=== PATIENT | male | born 1970 | race Caucasian/White ===

== ENCOUNTER 2018-01-11 00:30 | Emergency (ER) | payer OTHER ==
[~2018-01-11] VITALS: Ht 185.4 cm; Wt 140.6 kg
[2018-01-11 00:33] VITALS: Ht 185.4 cm; Wt 140.6 kg
[2018-01-11 01:18] LABS: BASOPHIL % 0.5 % (0-2); PLATELET COUNT 202 x10^3mcL (130-400); RED CELL DISTRIBUTION WIDTH 14.3 % (11.5-14.5)
[2018-01-11 01:29] LABS: CALCIUM 7.8 mg/dL (8.5-10.1); CHLORIDE SERUM 103 mmol/L (98-107); CREATININE SERUM 1.1 mg/dL (0.7-1.3); GFR1 > 60 mL/min; GLUCOSE SERUM 176 mg/dL (74-106); POTASSIUM SERUM 3.8 mmol/L (3.5-5.1); SODIUM SERUM 138 mmol/L (136-145)
[2018-01-11 01:34] LABS: ALBUMIN 3.4 g/dL (3.4-5.0); ALKALINE PHOSPHATASE 101 U/L (46-116); ALT/SGPT 32 U/L (16-63); AST/SGOT 21 U/L (15-37); BILIRUBIN TOTAL 0.4 mg/dL (0.20-1.00); TOTAL PROTEIN, SERUM 6.7 g/dL (6.4-8.2)
[2018-01-11 02:12] LABS: microscopic required? NO
[2018-01-11 02:24] LABS: urine erythrocyte NEGATIVE (NEGATIVE)
[2018-01-11 03:33] VITALS: BP 111/64
== END 2018-01-11 03:33 | disposition home or self-care (01) ==
LOC: ED 00:30
PROVIDERS: Emergency Medicine
DX: I10 Essential (primary) hypertension (principal); R73.9 Hyperglycemia, unspecified
CPT/HCPCS: 36415; 83880

== ENCOUNTER 2020-01-29 18:56 | Inpatient (IN) | payer OTHER, SELFPAY ==
[~2020-01-29] VITALS: Ht 185.4 cm; Wt 131.7 kg
[2020-01-29 18:59] VITALS: Ht 185.4 cm; Wt 131.7 kg
[2020-01-29 21:33] LABS: BASOPHIL % 0 % (0-2); PLATELET COUNT 268 x10^3mcL (130-400); RED CELL DISTRIBUTION WIDTH 14.1 % (11.5-14.5)
[2020-01-29 22:14] LABS: BILIRUBIN TOTAL 0.84 mg/dL (0.20-1.00); CALCIUM 8.8 mg/dL (8.5-10.1); CREATININE SERUM 1.4 mg/dL (0.7-1.3); POTASSIUM SERUM 3.8 mmol/L (3.5-5.1); TOTAL PROTEIN, SERUM 7.8 g/dL (6.4-8.2)
[2020-01-29 22:29] LABS: ALBUMIN 3.3 g/dL (3.4-5.0)
[2020-01-30] VITALS (7 sets, daily range): BP systolic 110–153; BP diastolic 57–95
[2020-01-30 02:46] LABS: UA SPECIFIC GRAVITY 1.025 (1.005-1.035); microscopic required? YES; urine erythrocyte 3+ (NEGATIVE)
[2020-01-30 02:55] LABS: MAGNESIUM 2.3 mg/dL (1.8-2.4); PHOSPHOROUS 2.1 mg/dL (2.5-4.9)
[2020-01-30 07:31] LABS: C REACTIVE PROTEIN 11.7 mg/dL (<=0.9); CALCIUM 8.5 mg/dL (8.5-10.1); CARBON DIOXIDE 26.2 mmol/L (21-32); CREATININE SERUM 1.4 mg/dL (0.7-1.3); MAGNESIUM 2.5 mg/dL (1.8-2.4); PHOSPHOROUS 4.5 mg/dL (2.5-4.9); POTASSIUM SERUM 3.7 mmol/L (3.5-5.1)
[2020-01-30 08:00] LABS: BASOPHIL % 0.1 % (0-2); PLATELET COUNT 227 x10^3mcL (130-400); RED CELL DISTRIBUTION WIDTH 13.7 % (11.5-14.5)
[2020-01-30 20:50] LABS: AMPHETAMINE QUAL UR NONE DETECTED (See below)
[2020-01-31 05:58] VITALS: BP 116/63
[2020-01-31 07:48] LABS: BASOPHIL % 0.2 % (0-2); PLATELET COUNT 248 x10^3mcL (130-400); RED CELL DISTRIBUTION WIDTH 13.9 % (11.5-14.5)
[2020-01-31 08:04] LABS: CALCIUM 9.1 mg/dL (8.5-10.1); CARBON DIOXIDE 28.8 mmol/L (21-32); CHLORIDE SERUM 100 mmol/L (98-107); CREATININE SERUM 1.1 mg/dL (0.7-1.3); GFR1 > 60 mL/min; GLUCOSE SERUM 128 mg/dL (74-106); MAGNESIUM 2.6 mg/dL (1.8-2.4); PHOSPHOROUS 4.1 mg/dL (2.5-4.9); POTASSIUM SERUM 3.9 mmol/L (3.5-5.1); SODIUM SERUM 139 mmol/L (136-145)
[2020-01-31 09:19] VITALS: BP 146/79
[2020-01-31 12:31] VITALS: BP 120/70
[2020-01-31 21:18] VITALS: BP 133/79
[2020-02-01 05:46] VITALS: BP 119/64
[2020-02-01 07:21] LABS: CALCIUM 8.5 mg/dL (8.5-10.1); CARBON DIOXIDE 29.4 mmol/L (21-32); CHLORIDE SERUM 104 mmol/L (98-107); CREATININE SERUM 1.1 mg/dL (0.7-1.3); GFR1 > 60 mL/min; GLUCOSE SERUM 118 mg/dL (74-106); MAGNESIUM 2.4 mg/dL (1.8-2.4); SODIUM SERUM 140 mmol/L (136-145)
[2020-02-01 08:03] LABS: BASOPHIL % 0.3 % (0-2); PLATELET COUNT 310 x10^3mcL (130-400); RED CELL DISTRIBUTION WIDTH 12.8 % (11.5-14.5)
[2020-02-01 09:04] VITALS: BP 134/78
[2020-02-01 12:26] VITALS: BP 149/90
[2020-02-01 17:02] VITALS: BP 156/92
[2020-02-01 21:15] VITALS: BP 97/48
[2020-02-02 05:40] VITALS: BP 149/86
[2020-02-02 09:09] VITALS: BP 161/102
[2020-02-02 12:45] VITALS: BP 146/89
[2020-02-02 12:51] LABS: BILIRUBIN DIRECT 0.2 mg/dL (0.0-0.2); BILIRUBIN TOTAL 0.51 mg/dL (0.20-1.00); TOTAL PROTEIN, SERUM 7.1 g/dL (6.4-8.2)
[2020-02-02 13:11] LABS: ALBUMIN 2.8 g/dL (3.4-5.0)
[2020-02-02 16:45] VITALS: BP 139/87
[2020-02-02 22:29] VITALS: BP 150/99
[2020-02-03 06:41] VITALS: BP 159/103
[2020-02-03 07:28] LABS: BASOPHIL % 0.1 % (0-2); PLATELET COUNT 307 x10^3mcL (130-400); RED CELL DISTRIBUTION WIDTH 12.6 % (11.5-14.5)
[2020-02-03 07:35] LABS: ALKALINE PHOSPHATASE 73 U/L (46-116); ALT/SGPT 81 U/L (16-63); AST/SGOT 44 U/L (15-37); BILIRUBIN DIRECT 0.23 mg/dL (0.0-0.2); BILIRUBIN TOTAL 0.7 mg/dL (0.20-1.00); CALCIUM 8.7 mg/dL (8.5-10.1); CARBON DIOXIDE 25.6 mmol/L (21-32); CHLORIDE SERUM 102 mmol/L (98-107); CREATININE SERUM 0.9 mg/dL (0.7-1.3); GFR1 > 60 mL/min; GLUCOSE SERUM 93 mg/dL (74-106); POTASSIUM SERUM 4.6 mmol/L (3.5-5.1); SODIUM SERUM 136 mmol/L (136-145)
[2020-02-03 07:36] LABS: ALBUMIN 2.7 g/dL (3.4-5.0)
[2020-02-03 08:28] VITALS: BP 164/101
[2020-02-03 12:02] VITALS: BP 147/85
[2020-02-03 16:58] VITALS: BP 170/106
[2020-02-03 20:45] VITALS: BP 145/86
[2020-02-04 05:40] VITALS: BP 135/98
[2020-02-04 08:03] LABS: BILIRUBIN DIRECT 0.27 mg/dL (0.0-0.2); BILIRUBIN TOTAL 0.7 mg/dL (0.20-1.00)
[2020-02-04 08:08] LABS: ALBUMIN 3.1 g/dL (3.4-5.0); TOTAL PROTEIN, SERUM 8.3 g/dL (6.4-8.2)
[2020-02-04 09:02] VITALS: BP 139/97
[2020-02-04 12:55] VITALS: BP 131/95
[2020-02-04 17:13] VITALS: BP 120/84
[2020-02-04 21:49] VITALS: BP 134/73
[2020-02-05 06:14] VITALS: BP 114/62
[2020-02-05 07:39] LABS: BASOPHIL % 0.3 % (0-2); PLATELET COUNT 338 x10^3mcL (130-400); RED CELL DISTRIBUTION WIDTH 14.1 % (11.5-14.5)
[2020-02-05 07:55] LABS: CALCIUM 9.3 mg/dL (8.5-10.1); CARBON DIOXIDE 23.8 mmol/L (21-32); CHLORIDE SERUM 105 mmol/L (98-107); CREATININE SERUM 1.1 mg/dL (0.7-1.3); GFR1 > 60 mL/min; GLUCOSE SERUM 124 mg/dL (74-106); POTASSIUM SERUM 4.5 mmol/L (3.5-5.1); SODIUM SERUM 138 mmol/L (136-145)
[2020-02-05 08:58] VITALS: BP 131/91
[2020-02-05 10:36] LABS: BILIRUBIN DIRECT 0.24 mg/dL (0.0-0.2); BILIRUBIN TOTAL 0.5 mg/dL (0.20-1.00); TOTAL PROTEIN, SERUM 7.7 g/dL (6.4-8.2)
[2020-02-05 13:34] VITALS: BP 141/77
[2020-02-05 17:25] VITALS: BP 124/69
[2020-02-05 21:59] VITALS: BP 144/92
[2020-02-06 05:38] VITALS: BP 128/90
[2020-02-06 07:40] LABS: BILIRUBIN DIRECT 0.27 mg/dL (0.0-0.2); BILIRUBIN TOTAL 0.84 mg/dL (0.20-1.00); TOTAL PROTEIN, SERUM 8.1 g/dL (6.4-8.2)
[2020-02-06 07:43] LABS: ALBUMIN 3.1 g/dL (3.4-5.0)
[2020-02-06 09:06] VITALS: BP 143/97
[2020-02-06 12:25] VITALS: BP 118/64
[2020-02-06 17:23] VITALS: BP 111/82
[2020-02-06 21:16] VITALS: BP 146/97
[2020-02-07 05:43] VITALS: BP 147/96
[2020-02-07 06:50] LABS: BASOPHIL % 0.9 % (0-2); PLATELET COUNT 386 x10^3mcL (130-400); RED CELL DISTRIBUTION WIDTH 13.2 % (11.5-14.5)
[2020-02-07 07:25] LABS: CALCIUM 9.5 mg/dL (8.5-10.1); CARBON DIOXIDE 23.5 mmol/L (21-32); CHLORIDE SERUM 105 mmol/L (98-107); CREATININE SERUM 1.3 mg/dL (0.7-1.3); GFR1 > 60 mL/min; GLUCOSE SERUM 114 mg/dL (74-106); POTASSIUM SERUM 4.6 mmol/L (3.5-5.1); SODIUM SERUM 139 mmol/L (136-145)
[2020-02-07 09:02] VITALS: BP 143/90
[2020-02-07 12:33] VITALS: BP 109/81
[2020-02-07 17:01] VITALS: BP 138/91
[2020-02-07 20:48] VITALS: BP 124/79
[2020-02-08 05:10] VITALS: BP 136/80
[2020-02-08 07:27] LABS: C REACTIVE PROTEIN 0.9 mg/dL (<=0.9); CALCIUM 9.3 mg/dL (8.5-10.1); CHLORIDE SERUM 103 mmol/L (98-107); CREATININE SERUM 1.2 mg/dL (0.7-1.3); GFR1 > 60 mL/min; GLUCOSE SERUM 95 mg/dL (74-106); POTASSIUM SERUM 4.9 mmol/L (3.5-5.1); SODIUM SERUM 138 mmol/L (136-145)
[2020-02-08 09:06] VITALS: BP 137/77
[2020-02-08 09:13] LABS: BASOPHIL % 0.4 % (0-2); PLATELET COUNT 374 x10^3mcL (130-400); RED CELL DISTRIBUTION WIDTH 13.5 % (11.5-14.5)
[2020-02-08 13:16] VITALS: BP 95/55
[2020-02-08 16:44] VITALS: BP 109/77
[2020-02-08 20:50] VITALS: BP 142/89
[2020-02-09 05:15] VITALS: BP 101/63
[2020-02-09 06:49] LABS: BASOPHIL % 0.3 % (0-2); PLATELET COUNT 336 x10^3mcL (130-400); RED CELL DISTRIBUTION WIDTH 13.1 % (11.5-14.5)
[2020-02-09 07:12] LABS: C REACTIVE PROTEIN 0.5 mg/dL (<=0.9); CALCIUM 8.6 mg/dL (8.5-10.1); CARBON DIOXIDE 23.9 mmol/L (21-32); CHLORIDE SERUM 103 mmol/L (98-107); CREATININE SERUM 1.1 mg/dL (0.7-1.3); GFR1 > 60 mL/min; GLUCOSE SERUM 120 mg/dL (74-106); POTASSIUM SERUM 4.4 mmol/L (3.5-5.1); SODIUM SERUM 135 mmol/L (136-145)
[2020-02-09 08:07] VITALS: BP 129/74
[2020-02-09 11:44] VITALS: BP 116/81
[2020-02-09 16:40] VITALS: BP 110/76
[2020-02-09 20:40] VITALS: BP 108/78
[2020-02-10 05:45] VITALS: BP 114/62
[2020-02-10 08:29] LABS: CALCIUM 8.7 mg/dL (8.5-10.1); CARBON DIOXIDE 22.4 mmol/L (21-32); CHLORIDE SERUM 102 mmol/L (98-107); CREATININE SERUM 1.1 mg/dL (0.7-1.3); GFR1 > 60 mL/min; GLUCOSE SERUM 117 mg/dL (74-106); POTASSIUM SERUM 4.7 mmol/L (3.5-5.1); SODIUM SERUM 133 mmol/L (136-145)
[2020-02-10 08:37] LABS: BASOPHIL % 0.4 % (0-2); PLATELET COUNT 285 x10^3mcL (130-400); RED CELL DISTRIBUTION WIDTH 13.3 % (11.5-14.5)
[2020-02-10 09:01] VITALS: BP 129/77
[2020-02-10 13:32] VITALS: BP 113/69
[2020-02-10 17:22] VITALS: BP 122/75
[2020-02-10 21:27] VITALS: BP 137/85
[2020-02-11 06:25] VITALS: BP 133/82
[2020-02-11 06:57] LABS: BASOPHIL % 0.1 % (0.2-1.5); PLATELET COUNT 262 x10^3mcL (152-348); RED CELL DISTRIBUTION WIDTH 13.7 % (12.1-16.2)
[2020-02-11 07:12] LABS: CALCIUM 8.6 mg/dL (8.5-10.1); CARBON DIOXIDE 25.7 mmol/L (21-32); CHLORIDE SERUM 104 mmol/L (98-107); CREATININE SERUM 1.3 mg/dL (0.7-1.3); GFR1 > 60 mL/min; GLUCOSE SERUM 106 mg/dL (74-106); POTASSIUM SERUM 4.6 mmol/L (3.5-5.1); SODIUM SERUM 137 mmol/L (136-145)
[2020-02-11 07:59] LABS: rbc morphology (normal/abnorm) NORMAL (NORMAL)
[2020-02-11 09:08] VITALS: BP 117/69
[2020-02-11 13:03] VITALS: BP 110/60
[2020-02-11 17:18] VITALS: BP 108/61
[2020-02-11 20:52] VITALS: BP 128/76
[2020-02-12 06:05] VITALS: BP 123/75
[2020-02-12 07:22] LABS: BASOPHIL % 0.2 % (0.2-1.5); PLATELET COUNT 217 x10^3mcL (152-348); RED CELL DISTRIBUTION WIDTH 13.8 % (12.1-16.2)
[2020-02-12 07:42] LABS: CALCIUM 8.7 mg/dL (8.5-10.1); CARBON DIOXIDE 25.2 mmol/L (21-32); CHLORIDE SERUM 103 mmol/L (98-107); CREATININE SERUM 1.2 mg/dL (0.7-1.3); GFR1 > 60 mL/min; GLUCOSE SERUM 99 mg/dL (74-106); POTASSIUM SERUM 3.9 mmol/L (3.5-5.1); SODIUM SERUM 137 mmol/L (136-145)
[2020-02-12 08:40] VITALS: BP 138/81
[2020-02-12 11:46] LABS: rbc morphology (normal/abnorm) NORMAL (NORMAL)
[2020-02-12 12:21] VITALS: BP 118/56
[2020-02-12 16:42] VITALS: BP 113/70
[2020-02-12 23:58] VITALS: BP 107/73
[2020-02-13 05:03] VITALS: BP 138/85
[2020-02-13 09:04] VITALS: BP 115/73
[2020-02-13 09:13] LABS: BASOPHIL % 0.2 % (0.2-1.5); PLATELET COUNT 231 x10^3mcL (152-348); RED CELL DISTRIBUTION WIDTH 14.2 % (12.1-16.2)
[2020-02-13 09:36] LABS: CARBON DIOXIDE 23.5 mmol/L (21-32); CHLORIDE SERUM 102 mmol/L (98-107); GFR1 > 60 mL/min; GLUCOSE SERUM 114 mg/dL (74-106); POTASSIUM SERUM 4.5 mmol/L (3.5-5.1); SODIUM SERUM 136 mmol/L (136-145)
[2020-02-13 12:04] VITALS: BP 126/84
[2020-02-13 14:56] LABS: rbc morphology (normal/abnorm) NORMAL (NORMAL)
[2020-02-13 18:32] VITALS: BP 116/81
[2020-02-13 20:34] VITALS: BP 125/72
[2020-02-14 04:57] VITALS: BP 127/68
[2020-02-14 08:15] LABS: BASOPHIL % 0.2 % (0.2-1.5); PLATELET COUNT 194 x10^3mcL (152-348); RED CELL DISTRIBUTION WIDTH 14.2 % (12.1-16.2)
[2020-02-14 08:58] LABS: rbc morphology (normal/abnorm) NORMAL (NORMAL)
[2020-02-14 09:01] VITALS: BP 126/68
[2020-02-14 09:08] LABS: CARBON DIOXIDE 26.6 mmol/L (21-32); CHLORIDE SERUM 101 mmol/L (98-107); GFR1 > 60 mL/min; GLUCOSE SERUM 88 mg/dL (74-106); POTASSIUM SERUM 4.4 mmol/L (3.5-5.1); SODIUM SERUM 138 mmol/L (136-145)
[2020-02-14] MEDS ORDERED: VENTOLIN H0.09 MG/A1 INH (10:09)
[2020-02-14] MEDS ORDERED: COZ25 PO (10:10)
[2020-02-14] MEDS ORDERED: NOR5 PO (10:10)
[2020-02-14] MEDS ORDERED: DECADRON4 MG PO (10:11)
[2020-02-14 10:52] VITALS: BP 126/68
[2020-02-14 12:07] VITALS: BP 107/62
== END 2020-02-14 16:26 | disposition home or self-care (01) | DRG 871 ==
LOC: ED 18:56 → DU 22:34
PROVIDERS: Internal Medicine; Internal Medicine Infectious Disease; Specialist; ADMIT Family Medicine; ATTEND Family Medicine
PROC: XW033E5 Introduction of Remdesivir Anti-infective into Peripheral Vein, Percutaneous Approach, New Technology Group 5 (ICD-10-PCS; principal; 2020-02-02)
PROC: XW13325 Transfusion of Convalescent Plasma (Nonautologous) into Peripheral Vein, Percutaneous Approach, New Technology Group 5 (ICD-10-PCS; 2020-02-02)
DX: A41.89 Other specified sepsis (principal); U07.1 COVID-19; N17.0 Acute kidney failure with tubular necrosis; J12.89 Other viral pneumonia; J96.01 Acute respiratory failure with hypoxia; E87.1 Hypo-osmolality and hyponatremia; E44.1 Mild protein-calorie malnutrition; M62.82 Rhabdomyolysis; E11.9 Type 2 diabetes mellitus without complications; I10 Essential (primary) hypertension; G47.33 Obstructive sleep apnea (adult) (pediatric); R74.01 Elevation of levels of liver transaminase levels; E87.8 Other disorders of electrolyte and fluid balance, not elsewhere classified; E86.0 Dehydration; Q63.1 Lobulated, fused and horseshoe kidney; N20.0 Calculus of kidney
CPT/HCPCS: 36600; 82962; 83880; 85378; 87804; 94150; G0378; J0456; J0696; J1100; J1644; J2405; J3535; J7030; J7050; J7060; U0003